=== PATIENT | female | born 1995 | race Caucasian/White ===

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

== ENCOUNTER 2018-11-27 14:05 | Emergency (ER) | payer OTHER ==
[2018-11-27 14:16] VITALS: TEMP 97.9
[2018-11-27] MEDS ORDERED: SODIUM CHLORIDE 0.9% 1,000 ML IV STA (14:30)
[2018-11-27 14:49] LABS: Basophils % (A) 0 %; Eosinophils # (A) 0.3 k/uL (0-0.7); Eosinophils % (A) 3 %; HCT 45.4 % (34.0-46.0); HGB 15.3 gm/dL (11.4-16.0); Lymphocytes # (A) 1.5 k/uL (1.0-4.8); Lymphocytes % (A) 16 %; MCH 31.2 pg (25.0-35.0); MCHC 33.7 g/dL (31.0-37.0); MCV 92.7 fL (80.0-100.0); Monocytes # (A) 0.3 k/uL (0-1.0); Monocytes % (A) 3 %; Neutrophils # (A) 7.3 k/uL (1.3-7.7); Neutrophils % (A) 76 %; Platelet Count 226 k/uL (150-450); RDW 13.7 % (11.5-15.5); WBC 9.5 k/uL (3.8-10.6)
[2018-11-27 14:54] LABS: Appearance,Urine Cloudy (Clear); Bilirubin,Urine 1+ (Negative); Blood,Urine Moderate (Negative); Color,Urine Dark Brown; Glucose,Urine (UA) Negative (Negative); Ketones,Urine Negative (Negative); Leukocyte Esterase,Urine Large (Negative); Mucus,Urine Rare /hpf; Nitrite,Urine Positive (Negative); PH, Urine 5.5 (5.0-8.0); Protein,Urine Trace (Negative); RBC,Urine 4 /hpf (0-5); Specific Gravity,Urine 1.007 (1.001-1.035); Squamous Epithelial Cell,Urine <1 /hpf (0-4); WBC,Urine >182 /hpf (0-5)
[2018-11-27 15:00] LABS: ALT 39 U/L (9-52); AST 30 U/L (14-36); Albumin 4.9 g/dL (3.5-5.0); Alkaline Phosphatase 72 U/L (38-126); Amylase 37 U/L (30-110); Anion Gap 9 mmol/L; Blood Urea Nitrogen 14 mg/dL (7-17); Calcium 10.1 mg/dL (8.4-10.2); Carbon Dioxide 25 mmol/L (22-30); Chloride 105 mmol/L (98-107); Glucose 61 mg/dL (74-99); Lipase 27 U/L (23-300); Potassium 4.5 mmol/L (3.5-5.1); Sodium 139 mmol/L (137-145); Total Bilirubin 0.6 mg/dL (0.2-1.3); Total Protein 7.7 g/dL (6.3-8.2)
[2018-11-27] MEDS ORDERED: cefTRIAXone IN SWFI 1,000 MG/10 ML SYRINGE IVP STA (15:29)
--- NOTE | 2018-11-27 15:49 | ED ---
General Adult HPI - General Chief complaint: Urogenital Stated complaint: UTI Time Seen by Provider: 11/27/18 14:17 Source: patient, RN notes reviewed Mode of arrival: ambulatory Limitations: no limitations - History of Present Illness Initial comments: 23-year-old female presents to the emergency department for a chief complaint of dysuria. Patient states this has been ongoing for several days. States she also has some suprapubic pressure. Denies any lower upper back pain despite triage note. Patient states she has been on Bactrim for about 3 days with no improvement of symptoms. Patient states she was treated for chlamydia somewhat recently as well as her partner. Patient denies any other abdominal pain. Patient denies nausea or vomiting.denies any fevers or chills. Patient has no other complaints at this time including shortness of breath, chest pain, nausea or vomiting, headache, or visual changes. - Related Data Home Medications Medication Instructions Recorded Confirmed Cranberry Fruit Concentrate [Azo 250 mg PO DAILY 11/27/18 11/27/18 Cranberry] Multivitamins, Thera [Multivitamin 1 tab PO DAILY 11/27/18 11/27/18 (formulary)] Sulfamethox-Tmp 800-160Mg [Bactrim 1 tab PO BID 11/27/18 11/27/18 DS 800-160 mg] Previous Rx's Medication Instructions Recorded Doxycycline [Vibramycin] 100 mg PO BID 14 Days cap 11/27/18 Allergies Allergy/AdvReac Type Severity Reaction Status Date / Time No Known Allergies Allergy Verified 11/27/18 14:40 Review of Systems ROS Statement: Those systems with pertinent positive or pertinent negative responses have been documented in the HPI. ROS Other: All systems not noted in ROS Statement are negative. Past Medical History Past Medical History: No Reported History History of Any Multi-Drug Resistant Organisms: None Reported Past Surgical History: No Surgical Hx Reported Past Psychological History: Depression Smoking Status: Current every day smoker Past Alcohol Use History: Occasional Past Drug Use History: Cocaine, Methamphetamine, Prescription Drug Abuse - Past Family History Father Additional Family Medical History / Comment(s): Father is alive at age 38 with thyroid problems. Mother Additional Family Medical History / Comment(s): Mother is alive at age 37 and takes medicine for some type of a heart problem. Brother(s) Additional Family Medical History / Comment(s): Patient has 1 brother and 1 sister with no major medical problems. Patient does not have any children. General Exam Limitations: no limitations General appearance: alert, in no apparent distress Head exam: Present: atraumatic, normocephalic, normal inspection Eye exam: Present: normal appearance, PERRL, EOMI. Absent: scleral icterus, conjunctival injection, periorbital swelling ENT exam: Present: normal exam, mucous membranes moist Neck exam: Present: normal inspection, full ROM. Absent: tenderness, meningismus, lymphadenopathy Respiratory exam: Present: normal lung sounds bilaterally. Absent: respiratory distress, wheezes, rales, rhonchi, stridor Cardiovascular Exam: Present: regular rate, normal rhythm, normal heart sounds. Absent: systolic murmur, diastolic murmur, rubs, gallop, clicks GI/Abdominal exam: Present: soft, tenderness (mild suprapubic tenderness), normal bowel sounds. Absent: distended, guarding, rebound, rigid External exam: Absent: other (refuses) Neurological exam: Present: alert, oriented X3, CN II-XII intact Psychiatric exam: Present: normal affect, normal mood Course Vital Signs 11/27/18 14:14 Temperature 97.9 F Pulse Rate 61 Respiratory 16 Rate Blood Pressure 124/83 O2 Sat by Pulse 99 Oximetry Medical Decision Making - Medical Decision Making 23-year-old female presents for dysuria times several days. Patient started on Bactrim 3 days ago, no improvement of symptoms. Does have a history of STDs. Patient does have some suprapubic tenderness, no other abdominal tenderness, refusing pelvic exam. CBC CMP unremarkable. Glucose 61, patient given juice and crackers. Urine does show greater than 182 white cells, no hCG detected in the urine. At this time with failed outpatient treatment is concerned for STDs. Therefore patient will be treated with Rocephin and doxycycline. Urine will be cultured . Patient aware of this plan and the importance of follow-up for culture results in case we need to change the antibiotic. I did discuss this case with Dr. Pace Who agrees with this treatment plan. Patient will return here she is any worsening symptoms. - Lab Data Result diagrams: 11/27/18 14:30 11/27/18 14:30 Lab Results 11/27/18 11/27/18 11/27/18 Range/Units 14:30 14:30 14:30 WBC 9.5 (3.8-10.6) k/uL RBC 4.90 (3.80-5.40) m/uL Hgb 15.3 (11.4-16.0) gm/dL Hct 45.4 (34.0-46.0) % MCV 92.7 (80.0-100.0) fL MCH 31.2 (25.0-35.0) pg MCHC 33.7 (31.0-37.0) g/dL RDW 13.7 (11.5-15.5) % Plt Count 226 (150-450) k/uL Neutrophils % 76 % Lymphocytes % 16 % Monocytes % 3 % Eosinophils % 3 % Basophils % 0 % Neutrophils # 7.3 (1.3-7.7) k/uL Lymphocytes # 1.5 (1.0-4.8) k/uL Monocytes # 0.3 (0-1.0) k/uL Eosinophils # 0.3 (0-0.7) k/uL Basophils # 0.0 (0-0.2) k/uL Sodium 139 (137-145) mmol/L Potassium 4.5 (3.5-5.1) mmol/L Chloride 105 (98-107) mmol/L Carbon Dioxide 25 (22-30) mmol/L Anion Gap 9 mmol/L BUN 14 (7-17) mg/dL Creatinine 0.88 (0.52-1.04) mg/dL Est GFR (CKD-EPI)AfAm >90 (>60 ml/min/1.73 sqM) Est GFR (CKD-EPI)NonAf >90 (>60 ml/min/1.73 sqM) Glucose 61 L (74-99) mg/dL Calcium 10.1 (8.4-10.2) mg/dL Total Bilirubin 0.6 (0.2-1.3) mg/dL AST 30 (14-36) U/L ALT 39 (9-52) U/L Alkaline Phosphatase 72 (38-126) U/L Total Protein 7.7 (6.3-8.2) g/dL Albumin 4.9 (3.5-5.0) g/dL Amylase 37 (30-110) U/L Lipase 27 (23-300) U/L Urine Color Dark Brown Urine Appearance Cloudy H (Clear) Urine pH 5.5 (5.0-8.0) Ur Specific [place] 1.007 (1.001-1.035) Urine Protein Trace H (Negative) Urine Glucose (UA) Negative (Negative) Urine Ketones Negative (Negative) Urine Blood Moderate H (Negative) Urine Nitrite Positive H (Negative) Urine Bilirubin 1+ H (Negative) Urine Urobilinogen 2.0 (<2.0) mg/dL Ur Leukocyte Esterase Large H (Negative) Urine RBC 4 (0-5) /hpf Urine WBC >182 H (0-5) /hpf Urine WBC Clumps Few H (None) /hpf Ur Squamous Epith Cells <1 (0-4) /hpf Urine Mucus Rare H (None) /hpf Urine HCG, Qual (Not Detectd) 11/27/18 Range/Units 14:30 WBC (3.8-10.6) k/uL RBC (3.80-5.40) m/uL Hgb (11.4-16.0) gm/dL Hct (34.0-46.0) % MCV (80.0-100.0) fL MCH (25.0-35.0) pg MCHC (31.0-37.0) g/dL RDW (11.5-15.5) % Plt Count (150-450) k/uL Neutrophils % % Lymphocytes % % Monocytes % % Eosinophils % % Basophils % % Neutrophils # (1.3-7.7) k/uL Lymphocytes # (1.0-4.8) k/uL Monocytes # (0-1.0) k/uL Eosinophils # (0-0.7) k/uL Basophils # (0-0.2) k/uL Sodium (137-145) mmol/L Potassium (3.5-5.1) mmol/L Chloride (98-107) mmol/L Carbon Dioxide (22-30) mmol/L Anion Gap mmol/L BUN (7-17) mg/dL Creatinine (0.52-1.04) mg/dL Est GFR (CKD-EPI)AfAm (>60 ml/min/1.73 sqM) Est GFR (CKD-EPI)NonAf (>60 ml/min/1.73 sqM) Glucose (74-99) mg/dL Calcium (8.4-10.2) mg/dL Total Bilirubin (0.2-1.3) mg/dL AST (14-36) U/L ALT (9-52) U/L Alkaline Phosphatase (38-126) U/L Total Protein (6.3-8.2) g/dL Albumin (3.5-5.0) g/dL Amylase (30-110) U/L Lipase (23-300) U/L Urine Color Urine Appearance (Clear) Urine pH (5.0-8.0) Ur Specific [place] (1.001-1.035) Urine Protein (Negative) Urine Glucose (UA) (Negative) Urine Ketones (Negative) Urine Blood (Negative) Urine Nitrite (Negative) Urine Bilirubin (Negative) Urine Urobilinogen (<2.0) mg/dL Ur Leukocyte Esterase (Negative) Urine RBC (0-5) /hpf Urine WBC (0-5) /hpf Urine WBC Clumps (None) /hpf Ur Squamous Epith Cells (0-4) /hpf Urine Mucus (None) /hpf Urine HCG, Qual Not Detected (Not Detectd) Disposition Clinical Impression: Dysuria Disposition: HOME SELF-CARE Condition: Good Instructions (If sedation given, give patient instructions): Urinary Tract Infection in Women (ED), Sexually Transmitted Diseases (ED) Additional Instructions: Please take doxycycline as directed. Do not get while taking this medication. Be sure to follow up on culture results in the next 2 days. Please return here immediately if you have any worsening symptoms. Prescriptions: Doxycycline [Vibramycin] 100 mg PO BID 14 Days cap Is patient prescribed a controlled substance at d/c from ED?: No Referrals: Irma Bro MD [Primary Care Provider] - 1-2 days Time of Disposition: 15:46
[2018-11-27 16:14] VITALS: BP 111/72; PULSE 78; RESP 18
[2018-11-28 14:58] LABS: N. gonorrhoeae,PCR Negative (Neg,Equiv); Neisseria Source Urine
[2018-11-28 15:06] LABS: C. trachomatis,PCR Negative (Neg,Equiv); Chlamydia trachomatis Source Urine
== END 2018-11-27 16:16 | disposition home or self-care (01) ==
LOC: EC 14:05
DX: R30.0 Dysuria (principal); R10.819 Abdominal tenderness, unspecified site; Z53.29 Procedure and treatment not carried out because of patient's decision for other reasons; F17.200 Nicotine dependence, unspecified, uncomplicated; Z79.899 Other long term (current) drug therapy; Z53.8 Procedure and treatment not carried out for other reasons
CPT/HCPCS: 36415; 80053; 82150; 83690; 85025; 81001; 81025; 87040; 87491; 87591; 87086; 99283; 96374; 96361; J0696

== ENCOUNTER 2019-05-02 14:15 | Emergency (ER) | payer OTHER ==
--- NOTE | 2019-05-02 14:48 | ED ---
Abdominal Pain HPI - General Chief Complaint: Abdominal Pain Stated Complaint: Fever Time Seen by Provider: 05/02/19 14:22 Source: patient, RN notes reviewed Mode of arrival: ambulatory Limitations: no limitations - History of Present Illness Initial Comments: 24-year-old female presents emergency Department chief complaint of urinary tract infection. States that she's had dysuria and frequency since yesterday. She has multiple abdominal pressure as low back pain. Denies any fevers or chills no nausea vomiting diarrhea constipation no chance . Patient had recurrent urinary tract infections. - Related Data Home Medications Medication Instructions Recorded Confirmed Cranberry Fruit Concentrate [Azo 250 mg PO DAILY 11/27/18 11/27/18 Cranberry] Multivitamins, Thera [Multivitamin 1 tab PO DAILY 11/27/18 11/27/18 (formulary)] Sulfamethox-Tmp 800-160Mg [Bactrim 1 tab PO BID 11/27/18 11/27/18 DS 800-160 mg] Previous Rx's Medication Instructions Recorded Doxycycline [Vibramycin] 100 mg PO BID 14 Days cap 11/27/18 Cephalexin [Keflex] 500 mg PO Q8HR #21 cap 05/02/19 Allergies Allergy/AdvReac Type Severity Reaction Status Date / Time No Known Allergies Allergy Verified 05/02/19 14:18 Review of Systems ROS Statement: Those systems with pertinent positive or pertinent negative responses have been documented in the HPI. ROS Other: All systems not noted in ROS Statement are negative. Past Medical History Past Medical History: No Reported History History of Any Multi-Drug Resistant Organisms: None Reported Past Surgical History: No Surgical Hx Reported Past Psychological History: Anxiety, Depression Smoking Status: Current every day smoker Past Alcohol Use History: Occasional Past Drug Use History: Cocaine, Methamphetamine, Prescription Drug Abuse - Past Family History Father Additional Family Medical History / Comment(s): Father is alive at age 38 with thyroid problems. Mother Additional Family Medical History / Comment(s): Mother is alive at age 37 and takes medicine for some type of a heart problem. Brother(s) Additional Family Medical History / Comment(s): Patient has 1 brother and 1 sister with no major medical problems. Patient does not have any children. General Exam Limitations: no limitations General appearance: alert, in no apparent distress Head exam: Present: atraumatic, normocephalic, normal inspection Respiratory exam: Present: normal lung sounds bilaterally. Absent: respiratory distress, wheezes, rales, rhonchi, stridor Cardiovascular Exam: Present: regular rate, normal rhythm, normal heart sounds. Absent: systolic murmur, diastolic murmur, rubs, gallop, clicks GI/Abdominal exam: Present: soft, tenderness (Suprapubic), normal bowel sounds. Absent: distended, guarding, rebound, rigid Back exam: Absent: CVA tenderness (R), CVA tenderness (L) Neurological exam: Present: alert Skin exam: Present: warm, dry, intact, normal color. Absent: rash Course Vital Signs 05/02/19 14:16 Temperature 98.2 F Pulse Rate 84 Respiratory 18 Rate Blood Pressure 134/92 O2 Sat by Pulse 100 Oximetry Medical Decision Making - Medical Decision Making 24-year-old female presented for UTI symptoms. Patient has evidence of urinary tract infection. Patient noted to have some blood in her urine. Patient's advised to have her recheck her urinalysis after treatment. Patient has no flank pain. Patient is afebrile. - Lab Data Lab Results 05/02/19 05/02/19 Range/Units 14:35 14:35 Urine Color Dark Yellow Urine Appearance Cloudy H (Clear) Urine pH 7.0 (5.0-8.0) Ur Specific [place] 1.022 (1.001-1.035) Urine Protein 2+ H (Negative) Urine Glucose (UA) Negative (Negative) Urine Ketones Negative (Negative) Urine Blood Moderate H (Negative) Urine Nitrite Negative (Negative) Urine Bilirubin Negative (Negative) Urine Urobilinogen <2.0 (<2.0) mg/dL Ur Leukocyte Esterase Moderate H (Negative) Urine RBC >182 H (0-5) /hpf Urine WBC >182 H (0-5) /hpf Urine WBC Clumps Occasional H (None) /hpf Ur Squamous Epith Cells 16 H (0-4) /hpf Urine Mucus Occasional H (None) /hpf Urine HCG, Qual Not Detected (Not Detectd) Disposition Clinical Impression: UTI (urinary tract infection) Disposition: HOME SELF-CARE Condition: Stable Instructions (If sedation given, give patient instructions): Urinary Tract Infection in Women (ED) Additional Instructions: Please return to the Emergency Department if symptoms worsen or any other concerns. Prescriptions: Cephalexin [Keflex] 500 mg PO Q8HR #21 cap Is patient prescribed a controlled substance at d/c from ED?: No Referrals: Irma Bro MD [Primary Care Provider] - 1-2 days Time of Disposition: 15:04
[2019-05-02 14:57] LABS: Appearance,Urine Cloudy (Clear); Bilirubin,Urine Negative (Negative); Blood,Urine Moderate (Negative); Color,Urine Dark Yellow; Glucose,Urine (UA) Negative (Negative); Ketones,Urine Negative (Negative); Leukocyte Esterase,Urine Moderate (Negative); Mucus,Urine Occasional /hpf; Nitrite,Urine Negative (Negative); Protein,Urine 2+ (Negative); RBC,Urine >182 /hpf (0-5); Specific Gravity,Urine 1.022 (1.001-1.035); Squamous Epithelial Cell,Urine 16 /hpf (0-4); Urobilinogen,Urine <2.0 mg/dL (<2.0)
[2019-05-02] MEDS ORDERED: cefTRIAXone 1,000 MG VIAL (IM USE) IM STA (15:02)
[2019-05-02 15:25] VITALS: BP 130/86; PULSE 81; RESP 16; TEMP 98.1
[2019-05-04 07:55] LABS: N. gonorrhoeae,PCR Negative (Neg,Equiv); Neisseria Source Urine
[2019-05-04 10:10] LABS: C. trachomatis,PCR Negative (Neg,Equiv); Chlamydia trachomatis Source Urine
== END 2019-05-02 15:24 | disposition home or self-care (01) ==
LOC: EC 14:15
DX: N39.0 Urinary tract infection, site not specified (principal); F17.200 Nicotine dependence, unspecified, uncomplicated
CPT/HCPCS: 81001; 81025; 87491; 87591; 87086; 87077; 87186; 99284; 96372; J0696

== ENCOUNTER 2020-01-20 14:58 | Emergency (ER) | payer OTHER ==
[2020-01-20 15:17] VITALS: TEMP 98.1
[2020-01-20] MEDS ORDERED: IBUPROFEN 600 MG TAB PO STA (15:39)
--- NOTE | 2020-01-20 15:48 | ED ---
General Adult HPI - General Chief complaint: Extremity Problem,Nontraumatic Stated complaint: Numbness in left leg Time Seen by Provider: 01/20/20 15:15 Source: patient, RN notes reviewed, old records reviewed Mode of arrival: ambulatory - History of Present Illness Initial comments: This is a 24-year-old female presents emergency department stating that she fell fell while rollerblading a week ago and landed on her tailbone. Patient states that quite significant pain in her tailbone and yesterday she had to fly home and do a lot of driving and she was leaning on one side and after that she started having some left leg tingling. Patient states she thinks it was clear she was sitting on one side all the way home on a plane in the car. Patient is concerned though because she worries about a clot in her leg and she also worries about the fact that her back pain is continuing to hurt her. Patient states is mostly in her tailbone area. She has a little lower back pain. Patient denies any actual numbness or weakness. - Related Data Home Medications Medication Instructions Recorded Confirmed Ibuprofen [Advil] 400 mg PO Q8HR PRN 01/20/20 01/20/20 Previous Rx's Medication Instructions Recorded Ibuprofen [Motrin] 600 mg PO Q6HR PRN #20 tab 01/20/20 Allergies Allergy/AdvReac Type Severity Reaction Status Date / Time No Known Allergies Allergy Verified 01/20/20 15:46 Review of Systems ROS Statement: Those systems with pertinent positive or pertinent negative responses have been documented in the HPI. ROS Other: All systems not noted in ROS Statement are negative. Past Medical History Past Medical History: No Reported History History of Any Multi-Drug Resistant Organisms: None Reported Past Surgical History: No Surgical Hx Reported Past Psychological History: Anxiety, Depression Smoking Status: Current every day smoker Past Alcohol Use History: Occasional Past Drug Use History: Cocaine, Methamphetamine, Prescription Drug Abuse - Past Family History Father Additional Family Medical History / Comment(s): Father is alive at age 38 with thyroid problems. Mother Additional Family Medical History / Comment(s): Mother is alive at age 37 and takes medicine for some type of a heart problem. Brother(s) Additional Family Medical History / Comment(s): Patient has 1 brother and 1 sister with no major medical problems. Patient does not have any children. General Exam - General Exam Comments Initial Comments: GENERAL: Patient is well-developed and well-nourished. Patient is nontoxic and well- hydrated and is in mild distress. ENT: Neck is soft and supple. No significant lymphadenopathy is noted. Oropharynx is clear. Moist mucous membranes. Neck has full range of motion without eliciting any pain. EYES: The sclera were anicteric and conjunctiva were pink and moist. Extraocular movements were intact and pupils were equal round and reactive to light. Eyelids were unremarkable. PULMONARY: Unlabored respirations. Good breath sounds bilaterally. No audible rales rhonchi or wheezing was noted. CARDIOVASCULAR: There is a regular rate and rhythm without any murmurs gallops or rubs. ABDOMEN: Soft and nontender with normal bowel sounds. SKIN: Skin is clear with no lesions or rashes and otherwise unremarkable. NEUROLOGIC: Patient is alert and oriented x3. Cranial nerves II through XII are grossly intact. Motor and sensory are also intact. Normal speech, volume and content. Symmetrical smile. MUSCULOSKELETAL: Normal extremities with adequate strength and full range of motion. Patient has some slight tenderness of the lower back in the lumbar region. Patient also has some tailbone tenderness. Patient is no swelling leg no redness of the leg no cord behind the side was palpated. Patient has normal sensation but patient has subjective tingling in the leg in the anterior and lateral aspects. LYMPHATICS: No significant lymphadenopathy is noted PSYCHIATRIC: Normal psychiatric evaluation. Course Vital Signs 01/20/20 15:13 Temperature 98.1 F Pulse Rate 89 Respiratory 18 Rate Blood Pressure 152/92 O2 Sat by Pulse 98 Oximetry Medical Decision Making - Medical Decision Making Ultrasound showed no DVT. Lumbar sickle spine showed no acute abnormality. Sacrum and coccyx is a slightly displaced coccyx fracture. Disposition Clinical Impression: Fractured coccyx, Leg paresthesia Disposition: HOME SELF-CARE Condition: Good Instructions (If sedation given, give patient instructions): Coccyx Injury (ED) Prescriptions: Ibuprofen [Motrin] 600 mg PO Q6HR PRN #20 tab PRN Reason: For pain Is patient prescribed a controlled substance at d/c from ED?: No Referrals: Irma Bro MD [Primary Care Provider] - 1-2 days Time of Disposition: 16:41
--- NOTE | 2020-01-20 16:29 | XR ---
EXAMINATION TYPE: XR lumbosacral spine min 4V DATE OF EXAM: 01/20/2020 COMPARISON: None HISTORY: Trauma, pain fall and lower back and tailbone TECHNIQUE: Five-view lumbar spine FINDINGS: There 5 lumbar-type vertebral bodies. Pedicles are intact. Disc heights are preserved. Vert ebral body heights are preserved. Alignment is normal. Facets are normal. No abnormality of the sacru m within the [id number] is evident. IMPRESSION: 1. Normal 5 view lumbar spine
--- NOTE | 2020-01-20 16:31 | XR ---
EXAMINATION TYPE: XR sacrum coccyx DATE OF EXAM: 01/20/2020 COMPARISON: None HISTORY: Fall and roller blades, trauma, pain TECHNIQUE: Three-view sacrum and coccyx FINDINGS: At the sacrococcygeal junction there is some deformity of the sacrum. An acute fracture may be presen t at this level. Correlate with location of the patient's pain. Upper sacrum otherwise appears unremarkable. The distal coccyx appears unremarkable. Sacroiliac joint s are normal. IMPRESSION: 1. Suspected fracture of the distal sacrum at the sacrococcygeal junction
--- NOTE | 2020-01-20 16:36 | US ---
EXAMINATION TYPE: US venous doppler duplex LE LT DATE OF EXAM: 01/20/2020 4:29 PM COMPARISON: NONE CLINICAL HISTORY: Leg paresthesias. Leg tingling. No redness or swelling. Patient states being in a long car ride yesterday. SIDE PERFORMED: Left TECHNIQUE: The lower extremity deep venous system is examined utilizing real time linear array sonog sundeep with graded compression, doppler sonography and color-flow sonography. VESSELS IMAGED: External Iliac Vein (EIV) Common Femoral Vein Deep Femoral Vein Greater Saphenous Vein * Femoral Vein Popliteal Vein Small Saphenous Vein * Proximal Calf Veins (* superficial vessels) Left Leg: Negative for DVT IMPRESSION: 1. Left lower extremity ultrasound negative for deep venous thrombosis.
[2020-01-20 17:11] VITALS: BP 152/84; PULSE 76; RESP 20
== END 2020-01-20 17:11 | disposition home or self-care (01) ==
LOC: EC 14:58
DX: S32.2XXA Fracture of coccyx, initial encounter for closed fracture (principal); X58.XXXA Exposure to other specified factors, initial encounter; F17.200 Nicotine dependence, unspecified, uncomplicated
CPT/HCPCS: 72110; 72220; 99284